=== PATIENT | male | born 1950 | race Caucasian/White ===

== ENCOUNTER 2020-08-31 07:30 | Inpatient (IN) | payer MEDICARE, OTHER ==
[2020-08-31] VITALS (19 sets, daily range): BP systolic 102–157; BP diastolic 60–96
[~2020-08-31] VITALS: Ht 180.3 cm; Wt 86.8 kg
[~2020-08-31 07:30] MED LIST: FLO0.4C PO; PRAM0.5T12 PO; TADA5TAB2 PO; ceFAZolin 2gm in dextrose, iso 50 ML IV ONE; famotidine 20mg tablet PO ONE; ringers solution, lacted 1,000 ML IV SCH; tranexamic acid inj. 870 MG in normal saline 100ml IV soln 100 ML IV ONE; vancomycin 1,500 MG in NS 300ml IV soln IV ONE
[2020-08-31] MEDS ORDERED: tranexamic acid inj. 870 MG in normal saline 100ml IV soln 100 ML IV ONE (07:59)
[2020-08-31 11:01] LABS: BASOPHILS # (AUTO) 0.1 X10'3 (0-0.2); BASOPHILS % (AUTO) 1.2 % (0-1); EOSINOPHILS # (AUTO) 0.2 X10'3 (0-0.9); EOSINOPHILS % (AUTO) 3.9 % (0-6); LYMPHOCYTES # (AUTO) 1.8 X10'3 (1.1-4.8); LYMPHOCYTES % (AUTO) 28.9 % (21-51); MEAN CORPUSCULAR HEMOGLOBIN 29.1 PG (27.0-31.0); MEAN CORPUSCULAR HGB CONC 33.4 g/dL (33.0-36.5); MEAN CORPUSCULAR VOLUME 87.1 FL (78-98); MEAN PLATELET VOLUME 8.4 FL (7.4-10.4); MONOCYTES # (AUTO) 0.5 X10'3 (0-0.9); MONOCYTES % (AUTO) 8.7 % (2-12); NEUTROPHILS # (AUTO) 3.6 X10'3 (1.8-7.7); NEUTROPHILS % (AUTO) 57.3 % (42-75); PRE OP HEMATOCRIT 39.7 % (42.0-52.0); PRE OP HEMOGLOBIN 13.3 g/dL (14.0-17.9); PRE OP PLATELET COUNT 233 X10'3 (140-440); RED BLOOD COUNT 4.56 X10'6 (4.70-6.10); RED CELL DISTRIBUTION WIDTH 14.3 % (11.5-14.5)
[2020-08-31 11:17] LABS: ALBUMIN 3.4 G/DL (3.4-5.0); ALBUMIN/GLOBULIN RATIO 0.8 (1.1-1.5); ALKALINE PHOSPHATASE 77 IU/L (46-116); BLOOD UREA NITROGEN 15 MG/DL (7-18); BUN/CREATININE RATIO 15.8 (5.4-32.0); CALCIUM 9.1 MG/DL (8.5-10.1); CHLORIDE 106 MMOL/L (99-107); CREATININE 0.95 MG/DL (0.60-1.10); PRE OP ALT 22 U/L (30-65); PRE OP ANION GAP 8 (8-16); PRE OP AST 10 U/L (10-37); PRE OP BILIRUB, TOTAL 0.4 MG/DL (0.0-1.0); PRE OP GLUCOSE 102 MG/DL (70-104); PRE OP POTASSIUM 4.5 MMOL/L (3.4-5.1); PRE OP SODIUM 142 MMOL/L (135-145); TOTAL CARBON DIOXIDE 28.4 MMOL/L (24-32); TOTAL PROTEIN 7.9 G/DL (6.4-8.2); eGFR 78 ML/MIN
[2020-08-31] MEDS ORDERED: proCHLORperazine 10 MG/2 ml inj IV PRN (12:50)
[2020-08-31] MEDS ORDERED: ondansetron/PF 4mg/2ml inj IV PRN ×2 (12:50→16:50)
[2020-08-31] MEDS ORDERED: ROPIVAcaine 0.2% (10 MG/5 ML) BOLUS INJECTION ADDCANAL PRN (12:50)
[2020-08-31] MEDS ORDERED: morphine 4 MG/ML inj SYRINge IV PRN (12:50)
[2020-08-31] MEDS ORDERED: meperidine/PF 25mg/ml syringe IV PRN ×3 (12:50)
[2020-08-31] MEDS ORDERED: ringers solution, lacted 1,000 ML IV SCH (12:50)
[2020-08-31] MEDS ORDERED: morphine 2 MG/ML inj. syringe IV PRN (12:50)
[2020-08-31] MEDS ORDERED: ROPIVAcaine 0.2%/PF PUMP/bolus 550 ML ADDCANAL SCH (12:50)
[2020-08-31] MEDS ORDERED: ketorolac trometh. 30mg/ml inj. ONE (13:39)
[2020-08-31] MEDS ORDERED: ROPIVAcaine 0.5% (5mg/ml) 30ml vial ONE ×2 (13:39→16:02)
[2020-08-31] MEDS ORDERED: tetracaine 1% (10mg/ml) pres. free inj. ONE (13:41)
[2020-08-31] MEDS ORDERED: MIDAZolam 1mg/ml 10ml vial ONE (13:55)
[2020-08-31] MEDS ORDERED: fentaNYL/PF 50MCG/1 ML 2ML syringe ONE (13:55)
[2020-08-31] MEDS ORDERED: propofol inj 20 ML IV ONE (15:59)
--- NOTE | 2020-08-31 16:45 | NUR ---
Received from OR via BED, accompanied by Anesthesiologist DR WORLEY and report given by Anesthesiolgist. PATIENT A&OX4, DENIES PAIN, V/S WNL, NEUROVASCULAR CHECKS INTACT, 20G PIV RUE, SCD ON, DRESSING TO LEFT KNEE CDI ELEVATED WITH POWDER PACK APPLIED. ON QUE QT 2ML/HR AND F/C DRAINING CLEAR YELLOW URINE
[2020-08-31] MEDS ORDERED: HYDROmorphone inj. 0.5 MG/0.5 ML DISP.SYRIN IV PRN (16:50)
[2020-08-31] MEDS ORDERED: magnesium hydroxide 30ml (MOM) UD suspension PO PRN (16:50)
[2020-08-31] MEDS ORDERED: acetaminophen 325mg tablet PO PRN (16:50)
[2020-08-31] MEDS ORDERED: diphenhydrAMINE 25mg capsule PO PRN ×2 (16:50)
[2020-08-31] MEDS ORDERED: bisacodyl 10mg suppository rectal RC PRN (16:50)
[2020-08-31] MEDS ORDERED: non-formulary drug (Tadalafil* (Cialis*) 1 TAB) PO PRN (16:50)
[2020-08-31] MEDS ORDERED: HYDROmorphone 1 mg/ml syringe IV PRN (16:50)
[2020-08-31] MEDS ORDERED: oxyCODONE IR 5mg (immed. release) tablet PO PRN ×2 (16:50)
--- NOTE | 2020-08-31 17:25 | NUR ---
PATIENT A&OX4, DENIES PAIN, V/S WNL, NEUROVASCULAR CHECKS INTACT, 20G PIV RUE, SCD ON, DRESSING TO LEFT KNEE CDI ELEVATED WITH POWDER PACK APPLIED. ON QUE QT 2ML/HR AND F/C DRAINING CLEAR YELLOW URINE, PATIENT TAKEN TO 354C WITH ALL BELONGINGS AND HOOKED UP TO MONITORS IN ROOM AND REPORT GIVENT O RN WHO HAS TAKEN OVER PATIENT CARE
--- NOTE | 2020-08-31 18:15 | NUR ---
RECEIVED REPORT FROM RAMONA DURAN AND ASSUMED PATIENT CARE
--- NOTE | 2020-08-31 18:27 | NUR ---
Problems reprioritized. Patient report given, questions answered & plan of care reviewed with ROGER DE JESUS.
[2020-08-31] MEDS ORDERED: vancomycin/NS 1 GM ADD-VANTAGE 250 ML IV SCH (20:00)
[2020-08-31] MEDS: acetaminophen 325mg tablet PO SCH (20:02)
[2020-08-31] MEDS: pramipexole 0.25mg tablet PO SCH (20:02)
[2020-08-31] MEDS: potassium cl 20mEq in 1/2 NS 1,000 ML IV SCH (20:02)
[2020-08-31] MEDS ORDERED: tamsulosin 0.4mg capsule PO SCH (21:00)
[2020-08-31] MEDS ORDERED: sennosides 8.6mg tablet PO SCH (21:00)
[2020-09-01] VITALS: BP 113/66
[2020-09-01] MEDS: ceFAZolin/D5W- 1GM premix 50 ML IV SCH ×2 (00:17→08:53)
[2020-09-01] MEDS: potassium cl 20mEq in 1/2 NS 1,000 ML IV SCH (00:50)
[2020-09-01] MEDS: acetaminophen 325mg tablet PO SCH ×2 (02:31→08:53)
[2020-09-01 06:31] LABS: BASOPHILS # (AUTO) 0.1 X10'3 (0-0.2); EOSINOPHILS # (AUTO) 0.2 X10'3 (0-0.9); EOSINOPHILS % (AUTO) 2.4 % (0-6); HEMATOCRIT 33.4 % (42.0-52.0); HEMOGLOBIN 11.4 g/dl (14.0-17.9); LYMPHOCYTES # (AUTO) 1.6 X10'3 (1.1-4.8); LYMPHOCYTES % (AUTO) 20.6 % (21-51); MEAN CORPUSCULAR HEMOGLOBIN 29.8 PG (27.0-31.0); MEAN CORPUSCULAR HGB CONC 34.3 g/dL (33.0-36.5); MEAN CORPUSCULAR VOLUME 86.9 FL (78-98); MEAN PLATELET VOLUME 8.6 FL (7.4-10.4); MONOCYTES # (AUTO) 0.8 X10'3 (0-0.9); MONOCYTES % (AUTO) 10.6 % (2-12); NEUTROPHILS # (AUTO) 5.1 X10'3 (1.8-7.7); NEUTROPHILS % (AUTO) 65.4 % (42-75); PLATELET COUNT 208 X10'3 (140-440); RED BLOOD COUNT 3.84 X10'6 (4.70-6.10); RED CELL DISTRIBUTION WIDTH 13.9 % (11.5-14.5); WHITE BLOOD COUNT 7.8 X10'3 (4.5-11.0)
[2020-09-01 06:50] LABS: ANION GAP 8 (8-16); CHLORIDE 106 MMOL/L (99-107); POTASSIUM 4.3 MMOL/L (3.5-5.1); SODIUM 140 MMOL/L (135-145); TOTAL CARBON DIOXIDE 26.4 MMOL/L (24-32)
[2020-09-01 07:00] VITALS: BP 109/62
[2020-09-01] MEDS ORDERED: aspirin 325mg tablet PO SCH (08:30)
[2020-09-01] MEDS: pramipexole 0.25mg tablet PO SCH (08:52)
[2020-09-01] MEDS ORDERED: ASPI-1 PO (12:06)
[2020-09-02] MEDS ORDERED: acetaminophen 325mg tablet PO PRN (16:50)
== END 2020-09-01 14:16 | disposition home health service (06) | DRG 470 ==
LOC: EDSTATUS 09:15 → PACU 09:31 → UNDOADMIN 09:31 → PAS IN 11:57 → PACU 11:57 → PAS IN 16:46 → PACU 16:46 → SUR 3N 17:29 → PAS IN 17:29
PROVIDERS: ADMIT Orthopaedic Surgery; ATTEND Orthopaedic Surgery
PROC: 8E0Y0CZ Robotic Assisted Procedure of Lower Extremity, Open Approach (ICD-10-PCS; 2020-08-31)
PROC: 8E0YXBZ Computer Assisted Procedure of Lower Extremity (ICD-10-PCS; 2020-08-31)
PROC: 0SRD0J9 Replacement of Left Knee Joint with Synthetic Substitute, Cemented, Open Approach (ICD-10-PCS; principal; 2020-08-31 13:58)
DX: M17.12 Unilateral primary osteoarthritis, left knee (principal); N40.0 Benign prostatic hyperplasia without lower urinary tract symptoms; K21.9 Gastro-esophageal reflux disease without esophagitis; D50.0 Iron deficiency anemia secondary to blood loss (chronic); M25.562 Pain in left knee; Z20.822 Contact with and (suspected) exposure to COVID-19; Z87.891 Personal history of nicotine dependence; Z79.899 Other long term (current) drug therapy
CPT/HCPCS: 36415; 80051; 80053; 85025; 87081; 87635; 97116; 97161; 97530; A4215; A6258; A7000; C1713; C1758; C1776; G0378; J0690; J1885; J2250; J2704; J2795; J3010; J3370; J3480; J7040; J7120